=== PATIENT | male | born 1975 | race Caucasian/White ===

== ENCOUNTER 2023-11-03 11:13 | Inpatient (IN) | payer OTHER ==
[2023-11-03] MEDS ORDERED: MAGNESIUM HYDROX 2400MG/30ML ORAL SUSPENSION 30 ML CUP PO PRN (11:44)
[2023-11-03] MEDS ORDERED: NALOXONE HCL 0.4 MG/ML VIAL IM PRN (11:44)
[2023-11-03] MEDS ORDERED: guaiFENesin 600 MG TABLET.ER (FP) PO PRN (11:44)
[2023-11-03] MEDS ORDERED: NALOXONE HCL (KLOXXADO) 8 MG SPRAY NS PRN (11:44)
[2023-11-03] MEDS ORDERED: POLYETHYLENE GLYCOL (HEALTHYLAX) 3350 17 GM PACKET PO PRN (11:44)
[2023-11-03] MEDS ORDERED: IBUPROFEN 400 MG TABLET (FP) PO PRN (11:44)
[2023-11-03] MEDS ORDERED: LOPERAMIDE HCL 2 MG CAPSULE PO PRN (11:44)
[2023-11-03] MEDS ORDERED: BENZONATATE 200 MG CAPSULE PO PRN (11:44)
[2023-11-03] MEDS ORDERED: BENZOCAINE/MENTHOL (CHLORASEPTIC ) LOZENGE MM PRN (11:44)
[2023-11-03] MEDS ORDERED: MAG HYDROX/AL HYDROX/SIMETH 30 ML UNIT-DOSE CUP PO PRN (11:44)
[2023-11-03] MEDS: methaDONE HCL 10 MG TABLET PO SCH (12:19)
[2023-11-03] MEDS: methaDONE 80 MG, methaDONE 10 MG PO SCH (12:28)
[2023-11-03] MEDS: MELATONIN 5 MG TABLETS PO SCH (22:21)
[2023-11-03] MEDS: THIAMINE 100 MG TABLET PO SCH (22:21)
[2023-11-03] MEDS: SULFAMETHOXAZOLE/TRIMETHOPRIM 800MG/160MG D.S. TABLET PO SCH (22:21)
[2023-11-03] MEDS: hydrOXYzine PAMOATE 25 MG CAPSULE (FP) PO PRN (22:22)
[2023-11-04] MEDS: IBUPROFEN 600 MG TABLET (FP) PO PRN (01:26)
[2023-11-04] MEDS: PRENATAL VITAMINS W/ FOLIC ACID TABLET (FP) PO SCH (10:29)
[2023-11-05] MEDS: BACITRACIN 0.9 GM PACKET TP SCH (12:14)
[2023-11-05] MEDS: ACETAMINOPHEN 325 MG TABLET (FP) PO PRN (21:24)
[2023-11-13] MEDS: GABAPENTIN 300 MG CAPSULE PO SCH (21:22)
[2023-11-13] MEDS: QUEtiapine FUMARATE 100 MG TABLET (FP) PO SCH (21:22)
[2023-11-14] MEDS ORDERED: ESCITALOPRAM OXALATE 10 MG TABLET PO SCH (10:00)
[2023-11-14] MEDS ORDERED: SERTRALINE HCL 50 MG TABLET (FP) PO SCH (10:00)
[2023-11-14] MEDS: SERTRALINE HCL 50 MG TABLET (FP) PO SCH (10:14)
[2023-11-18] MEDS: hydrOXYzine PAMOATE 25 MG CAPSULE (FP) PO PRN (21:18)
[2023-11-19 06:48] VITALS: BP 103/64; PULSE 83; RESP 17; TEMP 96.8
== END 2023-11-19 14:51 | disposition home or self-care (01) | DRG 772 ==
LOC: YASAS 11:13 → Y3NR 11:14 → Y3W 11-05 14:18
PROVIDERS: ADMIT Allergy & Immunology; ATTEND Psychiatry & Neurology Pain Medicine
PROC: HZ42ZZZ Group Counseling for Substance Abuse Treatment, Cognitive-Behavioral (ICD-10-PCS; principal; 2023-11-03)
DX: F11.20 Opioid dependence, uncomplicated (principal); F10.20 Alcohol dependence, uncomplicated; F12.20 Cannabis dependence, uncomplicated; F17.210 Nicotine dependence, cigarettes, uncomplicated; F25.9 Schizoaffective disorder, unspecified; F19.282 Other psychoactive substance dependence with psychoactive substance-induced sleep disorder; F19.24 Other psychoactive substance dependence with psychoactive substance-induced mood disorder; F41.9 Anxiety disorder, unspecified; A49.02 Methicillin resistant Staphylococcus aureus infection, unspecified site; I25.10 Atherosclerotic heart disease of native coronary artery without angina pectoris; I10 Essential (primary) hypertension; E11.9 Type 2 diabetes mellitus without complications; M54.50 Low back pain, unspecified; G89.29 Other chronic pain; K21.9 Gastro-esophageal reflux disease without esophagitis; Z91.148 Patient's other noncompliance with medication regimen for other reason; Z86.69 Personal history of other diseases of the nervous system and sense organs; Z86.59 Personal history of other mental and behavioral disorders